=== PATIENT | female | born 1990 | race Two or more races ===

== ENCOUNTER 2018-09-30 11:10 | Emergency (ER) | payer SELFPAY ==
[~2018-09-30] VITALS: Ht 157.5 cm; Wt 57.4 kg
[2018-09-30] MEDS ORDERED: SODIUM CHLORIDE 0.9% 1000ML 1,000 ML IV STA (11:25)
[2018-09-30] MEDS ORDERED: KETOROLAC TROMETHAMINE 30 MG/ML VIAL IV ONE (11:30)
[2018-09-30] MEDS ORDERED: DEXAMETHASONE SOD PHOS 10 MG/1 ML VIAL IV ONE (11:30)
[2018-09-30] MEDS ORDERED: ONDANSETRON HCL INJ 2MG/ML 2ML 2 MG/ML VIAL IV ONE (11:30)
--- NOTE | 2018-09-30 12:12 | Diagnostic Imaging Report ---
History: Headache Comparison studies: None Technique: Axial images were obtained from the skull base to the vertex. Coronal and sagittal reconstructions obtained from the axial data. Dose modulation, iterative reconstruction, and/or weight based adjustment of the mA/kV was utilized to reduce the radiation dose to as low as reasonably achievable. Findings: Scalp/skull: No abnormalities. No fractures, blastic or lytic lesions. Extra-axial spaces: No masses. No fluid collections. Brain sulci: Appropriate for age. Ventricles: Normal in size and configuration. No hydrocephalus. Parenchyma: No abnormal densities. No masses, hemorrhage, acute or chronic cortical vascular insults. Sellar/suprasellar region: No abnormalities Craniocervical junction: Patent foramen magnum. No Chiari one malformation. IMPRESSION: No abnormalities . Signed by: DR Rasheed Philip M.D. on 09/30/2018 12:09 PM
[2018-09-30 12:26] VITALS: BP 119/69
== END 2018-09-30 12:35 | disposition home or self-care (01) ==
LOC: FSED 11:10
DX: G44.019 Episodic cluster headache, not intractable (principal)
CPT/HCPCS: 70450; 80053; 81003; 81025; 85025; 99284; J1100; J1885; J2405; J7030